=== PATIENT | female | born 1995 | race Caucasian/White ===

== ENCOUNTER → 2016-07-02 | Outpatient (REF) | payer BC | LOC: LAB 11:22 | PROVIDERS: ATTEND Obstetrics & Gynecology | DX: N91.1 Secondary amenorrhea (principal) | CPT/HCPCS: 81025 ==

== ENCOUNTER → 2016-07-10 | Outpatient (CLI) | payer BC ==
--- NOTE | 2016-07-10 13:56 | Diagnostic Imaging Report ---
PROCEDURE: US OB SINGLE FETUS <14 WKS. TECHNIQUE: Multiple real-time grayscale images were obtained over the gravid uterus in various projections. INDICATION: Secondary amenorrhea. FINDINGS: There is [facility] intrauterine gestation in cephalic presentation. cardiac activity is present with a rate of 160 beats per minute. Amniotic fluid index is 11 cm. Placenta is posterior without evidence of previa. No anomaly is identified. biometry indicates gestational age of 25 weeks and 2 days. IMPRESSION: Unremarkable intrauterine gestation with estimated age of 25 weeks and 2 days. Sonographic EDC is 10/21/2016. Dictated by: Dictated on workstation # [id number]
== END ==
LOC: RAD 12:49
PROVIDERS: ATTEND Obstetrics & Gynecology
DX: N91.1 Secondary amenorrhea (principal); O09.892 Supervision of other high risk pregnancies, second trimester; Z34.02 Encounter for supervision of normal first pregnancy, second trimester; Z3A.25 25 weeks gestation of pregnancy
CPT/HCPCS: 76801